=== PATIENT | female | born 1995 | race Caucasian/White ===

== ENCOUNTER 2024-07-31 09:12 | Emergency (ER) | payer BC, OTHER ==
[2024-07-31] MEDS ORDERED: Boostrix 0.5 ML (Tdap) VIAL (>/=7 yrs of age) ONE (09:59)
[2024-07-31] MEDS ORDERED: Bacitracin 1 PK ONE (10:04)
== END 2024-07-31 10:13 | disposition home or self-care (01) ==
LOC: ERS 09:12
DX: S41.151A Open bite of right upper arm, initial encounter (principal); S40.021A Contusion of right upper arm, initial encounter; W55.11XA Bitten by horse, initial encounter
CPT/HCPCS: 90471; 90715